=== PATIENT | female | born 1950 | race Caucasian/White ===

== ENCOUNTER → 2023-04-20 | Outpatient (CLI) | payer MEDICARE ==
[~2023-04-20] MED LIST: DESLORATADINE5 MG PO; DUEXIS 800-26.1 EACH PO; DYMISTA NASAL S23 GM; GUAIFENESIN400 MG PO; IBANDRONATE SO150 MG PO; MONTELUKAST SOD10 MG PO; ZOLPIDEM TARTRAT5 MG PO
== END ==
LOC: CT 15:25
PROVIDERS: ATTEND Family Medicine
DX: S09.90XA Unspecified injury of head, initial encounter (principal)
CPT/HCPCS: 70450

== ENCOUNTER → 2024-07-30 | Outpatient (REF) | payer MEDICARE | LOC: CT 13:57 | PROVIDERS: ATTEND Family Medicine | DX: R07.81 Pleurodynia (principal) | CPT/HCPCS: 71250; 77080 ==